=== PATIENT | female | born 1995 | race Caucasian/White ===

== ENCOUNTER 2017-05-11 16:44 | Emergency (ER) | payer OTHER ==
--- NOTE | 2017-05-11 17:00 | EDPHY ---
H & P Stated Complaint: R eye vision loss Time Seen by Provider: 05/11/17 16:58 HPI/ROS: HPI: This is a 21-year-old female who presents with Chief Complaint: R eye vision loss Location:right eye Quality: vision loss Duration: Signs and Symptoms: no fever, no nausea, no vomiting, no photophobia, no noise sensitivity, no neck stiffness, no ear pain, no tinnitus, no nasal congestion, no sinus pressure, no weakness, no radiation Timing: Severity: Context: Patient reports that on April she did acid and a trip lasted approximately 16 hr. The next day she did [place], disc go lines that consisted of ecstasy and cocaine and drink heavily. She reports that after each occurrence of taking recreational drugs she developed a right-sided headache and had brief transient loss of vision that lasted no more than 30 min and self- resolved. She then reports that she did ectasy see again approximately 36 hr ago. She ate at a restaurant in [place] where she had fish and within several hours she started to experience nausea and diarrhea x5 times. She reports that she was dehydrated last night and has been trying to drink water since that time. She reports that she has not had any symptoms of diarrhea or nausea since around 8:00 a.m. this morning. She denies any blood in her stool/ abdominal pain/urinary symptoms/vaginal bleeding/vaginal discharge. Patient has an IUD in place and does not have her menses regularly. This afternoon she started to feel extremely anxious, developed right-sided headache that was primarily behind her right eye, aura that consisted of white floaters, nausea and light sensitivity. She reports that in the past she is told that she has had migraine headaches. She has not on any basal or border of migraine medications. She denies any fever/chills/upper respiratory symptoms/rash. Patient leaves for [place] in 7 days and she is worried. Modifying Factors: None Comment: ROS: see HPI Constitutional: No fever, no chills, no weight loss Eyes: No blurred vision Respiratory: No shortness of breath, no cough Cardiovascular: No chest pain, no palpitations Gastrointestinal: No nausea, no vomiting, no diarrhea, no hematemesis, no blood in stool Genitourinary: No dysuria, no blood in urine Extremities: No myalgias, no edema Neurologic: No weakness, no numbness Skin: No rashes, no petechiae Hematologic: No bruising, no bleeding MEDICAL/SURGICAL/SOCIAL HISTORY: Medical history: Migraine headaches Surgical history: Denies Social history: Employed. CONSTITUTIONAL: Extremely well-appearing slightly anxious young adult female awake and alert, no obvious distress HEENT: Atraumatic and normocephalic, PERRL, EOMI. Tympanic membranes clear. Oropharynx clear, no exudate and moist pink mucosa. Airway patent. No lymphadenopathy. No meningismus. Cardiovascular: Normal S1/S2, tachycardia, regular rhythm, without murmur rub or gallop. PULMONARY/CHEST: Symmetrical and nontender. Clear to auscultation bilaterally. Good air movement. No accessory muscle usage. ABDOMEN: Soft, nondistended, nontender, no rebound, no guarding, no peritoneal signs, no masses or organomegaly. No CVAT. EXTREMITIES: 2/2 pulses, strength 5/5, no deformities, no clubbing, no cyanosis or edema. NEUROLOGICAL: no focal neuro deficits. GCS 15. Current nose 2 through 12 grossly intact. Pedal pushes and hand household coordinator are equal bilaterally and 5/5. Normal Romberg testing. Normal [id number]. Normal [id number]. Speech is clear. SKIN: Warm and dry, no erythema. no rash. Good capillary refill. Source: Patient Exam Limitations: No limitations - Personal History LMP (Females 10-55): IUD In Place Current Tetanus/Diphtheria Vaccine: Yes Current Tetanus Diphtheria and Acellular Pertussis (TDAP): Yes - Medical/Surgical History Hx Asthma: No Hx Chronic Respiratory Disease: No Hx Diabetes: No Hx Cardiac Disease: No Hx Renal Disease: No Hx Cirrhosis: No Hx Alcoholism: No Hx HIV/AIDS: No Hx Splenectomy or Spleen Trauma: No Other PMH: denies - Social History Smoking Status: Never smoked Constitutional: Initial Vital Signs Temperature (C) 37.1 C 05/11/17 16:51 Heart Rate 120 H 05/11/17 16:51 Respiratory Rate 16 05/11/17 16:51 Blood Pressure 156/109 H 05/11/17 16:51 O2 Sat (%) 100 05/11/17 16:51 O2 Delivery Mode Room Air Allergies/Adverse Reactions: No Known Allergies Allergy (Unverified 05/11/17 16:51) Home Medications: Medication Instructions Recorded Acet/Caffeine/Buta Fioricet 1 each PO Q6 PRN #12 tab 05/11/17 [Fioricet (*)] Medical Decision Making ED Course/Re-evaluation: Discussed obtaining MRI brain imaging with patient she has declined at this time she believes that this is likely due to her recreational drug use and migraine. I believe this to be reasonable. No neurological deficits. Vision acuity 20/20 OS, 20/20 OD and 20/20 OU. Given 2 L normal saline and placed on oxygen 2 L nasal cannula, IV Decadron, IV Reglan, IV Benadryl, IV Toradol abdomen is soft and nontender. low yield surgical abdomen. 1744: Reassessed patient. significant other at bedside. Patient reports that she is having an anxiety attack. She started to perform deep breathing exercises and started to calm down. 1819: Reassessed patient who reports that her symptoms have significantly improved. Mother is on the phone but patient does not want me to talk to her and discuss her medical care at this time. Reviewed vital signs at discharge significantly improved. This patient was seen under the supervision of my primary supervising physician. I evaluated care for this patient independently. Differential Diagnosis: Headache including but not limited to subarachnoid hemorrhage, migraine headache , tension headache and infectious causes such as meningitis, pharyngitis and sinusitis. - Data Points Medications Given: Discontinued Medications Dexamethasone (Decadron Injection) 10 mg IVP EDNOW ONE Stop: 05/11/17 17:09 Last Admin: 05/11/17 17:29 Dose: 10 mg Diphenhydramine HCl (Benadryl Injection) 50 mg IVP EDNOW ONE Stop: 05/11/17 17:09 Last Admin: 05/11/17 17:29 Dose: 50 mg Sodium Chloride (Ns) 1,000 mls @ 0 mls/hr IV EDNOW ONE; Wide Open PRN Reason: Protocol Stop: 05/11/17 17:09 Last Admin: 05/11/17 17:29 Dose: 1,000 mls Sodium Chloride (Ns) 1,000 mls @ 0 mls/hr IV EDNOW ONE; Wide Open PRN Reason: Protocol Stop: 05/11/17 17:09 Last Admin: 05/11/17 18:09 Dose: 1,000 mls Ketorolac Tromethamine (Toradol) 30 mg IVP EDNOW ONE Stop: 05/11/17 17:09 Last Admin: 05/11/17 17:29 Dose: 30 mg Metoclopramide HCl (Reglan Injection) 10 mg IVP EDNOW ONE Stop: 05/11/17 17:09 Last Admin: 05/11/17 18:02 Dose: 10 mg Departure - Departure Disposition: Home, Routine, Self-Care Clinical Impression: Migraine headache with aura Qualifiers: Status migrainosus presence: without status migrainosus Intractability: not intractable Qualified Code(s): G43.109 - Migraine with aura, not intractable, without status migrainosus Condition: Good Instructions: Migraine Headache (ED), Ocular Migraine (ED) Additional Instructions: Consume a minimum of 8-10 glasses of water or electrolyte fluid replacement drinks that include Gatorade, Powerade, Pedialyte. Eat a bland diet for the next 48 hours and then slowly advance as tolerated. Take Fioricet every 6 hr as needed for headache. Please stop using illicit drugs. Establish care at [facility] and follow up with Neurology for headache diagnosis and evaluation. Referrals: [facility],. [Clinic] - As per Instructions Dereje Johnson MD [Medical Doctor] - As per Instructions Prescriptions: Acet/Caffeine/Buta Fioricet [Fioricet (*)] 1 each PO Q6 PRN #12 tab PRN Reason: Headache
[2017-05-11] MEDS ORDERED: METOCLOPRAMIDE 10 MG/2 ML VIAL IVP ONE (17:08)
[2017-05-11] MEDS ORDERED: KETOROLAC 30 MG/1 ML SDV IVP ONE (17:08)
[2017-05-11] MEDS ORDERED: NS 1,000 ML IV ONE ×2 (17:08)
[2017-05-11] MEDS ORDERED: DEXAMETHASONE 10 MG/ML VIAL IVP ONE (17:08)
[2017-05-11 18:47] VITALS: BP 124/74; PULSE 78; RESP 18; TEMP 98.4; O2SAT 98
== END 2017-05-11 18:58 | disposition home or self-care (01) ==
DX: G43.109 Migraine with aura, not intractable, without status migrainosus (principal); E86.9 Volume depletion, unspecified
CPT/HCPCS: 96374; J1100; J1200; J1885; J2765